=== PATIENT | female | born 1985 | race Caucasian/White ===

== ENCOUNTER → 2016-11-09 | Outpatient (CLI) | payer OTHER ==
[2016-11-09 06:00] LABS: BLOOD UREA NITROGEN 10 mg/dl (7-18); BUN/CREATININE RATIO 13.4 (10-20); CARBON DIOXIDE 25 mmol/L (21-32); CHLORIDE 107 mmol/L (98-107); CREATININE 0.74 mg/dl (0.60-1.20); GLUCOSE 93 mg/dl (70-99); POTASSIUM 3.8 mmol/L (3.5-5.1); SODIUM 139 mmol/L (136-145)
[2016-11-09 06:04] LABS: CHOLESTEROL 220 mg/dl (0-200); CHOLESTEROL/HDL RATIO 2.8; HDL CHOLESTEROL 79 mg/dl; LDL CHOLESTEROL CALCULATED 113 mg/dl; TRIGLYCERIDES 140 mg/dl (0-150); VERY LOW DENSITY LIPOPROT CALC 28 mg/dl
== END | disposition home or self-care (01) ==
LOC: C.LAB 03:38
PROVIDERS: ATTEND Nurse Practitioner Family
DX: Z13.1 Encounter for screening for diabetes mellitus (principal); Z13.220 Encounter for screening for lipoid disorders

== ENCOUNTER → 2017-11-18 | Outpatient (CLI) | payer BC | END | disposition home or self-care (01) | LOC: C.PATHSPEC 16:54 | PROVIDERS: ATTEND Plastic Surgery | DX: D22.5 Melanocytic nevi of trunk (principal) ==

== ENCOUNTER → 2017-11-19 | Outpatient (CLI) | payer BC ==
[2017-11-19 09:47] LABS: BLOOD UREA NITROGEN 12 mg/dl (7-18); CALCIUM 8.9 mg/dl (8.5-10.1); CARBON DIOXIDE 25 mmol/L (21-32); CHOLESTEROL 235 mg/dl (0-200); GLUCOSE 93 mg/dl (70-99); LDL CHOLESTEROL CALCULATED 125 mg/dl; POTASSIUM 4.1 mmol/L (3.5-5.1); SODIUM 140 mmol/L (136-145)
== END | disposition home or self-care (01) ==
LOC: C.LAB 07:24
PROVIDERS: ATTEND Nurse Practitioner Family
DX: Z00.00 Encounter for general adult medical examination without abnormal findings (principal); Z13.1 Encounter for screening for diabetes mellitus; Z13.220 Encounter for screening for lipoid disorders

== ENCOUNTER → 2017-11-27 | Outpatient (CLI) | payer BC ==
[2017-11-27 13:26] LABS: BASO % 0.6 %; BASO ABS # 0.04 K/uL (0-0.2); EOS % 0.7 %; EOS ABS # 0.05 K/uL (0-0.5); HEMATOCRIT 38.4 % (37-47); HEMOGLOBIN 13.6 g/dL (12.0-16.0); IG# 0.01 K/uL (0.00-0.02); LYMPH % 27.2 %; LYMPH ABS # 1.85 K/uL (1.2-3.4); MEAN CELL VOLUME 81.4 fL (80-100); MEAN CORPUSCULAR HEMOGLOBIN 28.8 pg (25-34); MEAN PLATELET VOLUME 9.2 fL (7.4-10.4); MONO % 9.3 %; MONO ABS # 0.63 K/uL (0.11-0.59); NEUT % 62.1 %; NEUT ABS # 4.21 K/uL (1.4-6.5); PLATELET COUNT 284 K/uL (130-400); RED CELL DISTRIBUTION WIDTH CV 12.1 % (11.5-14.5); WHITE BLOOD COUNT 6.79 K/uL (4.8-10.8)
--- NOTE | 2017-11-27 13:27 | DIAGNOSTIC IMAGING REPORT ---
HEAD WITHOUT CONTRAST (CT) CLINICAL HISTORY: 32 years-old Female with R51. Acute headache TECHNIQUE: Multiple axial CT images of the head were obtained without contrast. A dose lowering technique was utilized adhering to the principles of ALARA. CT DOSE: 638.56 mGycm COMPARISON: None. FINDINGS: No acute intracranial hemorrhage, midline shift, intracranial mass, hydrocephalus, territorial ischemia or abnormal extra-axial collection. The calvarium is intact. The paranasal sinuses, mastoid air cells, and middle ear cavities are clear. IMPRESSION: No acute intracranial abnormality. The above report was generated using voice recognition software. It may contain grammatical, syntax or spelling errors. Electronically signed by: Anthony Moya M.D. 11/27/2017 1:26 PM Dictated Date/Time: 11/27/2017 1:24 PM
[2017-11-27 13:29] LABS: MEAN CORPUSCULAR HGB CONC 35.4 g/dl (32-36)
[2017-11-27 13:56] LABS: ALBUMIN 4.2 gm/dl (3.4-5.0); ALT/SGPT 45 U/L (12-78); AST/SGOT 25 U/L (15-37); BLOOD UREA NITROGEN 12 mg/dl (7-18); CALCIUM 9.4 mg/dl (8.5-10.1); CARBON DIOXIDE 26 mmol/L (21-32); CREATININE 0.67 mg/dl (0.60-1.20); GLUCOSE 90 mg/dl (70-99); POTASSIUM 3.8 mmol/L (3.5-5.1); SODIUM 137 mmol/L (136-145)
[2017-11-27 14:02] LABS: ALKALINE PHOSPHATASE 42 U/L (45-117); TOTAL PROTEIN 7.7 gm/dl (6.4-8.2)
== END | disposition home or self-care (01) ==
LOC: C.CTS 13:05
PROVIDERS: ATTEND Nurse Practitioner Family
DX: R51 Headache (principal)

== ENCOUNTER 2019-07-19 20:09 | Inpatient (IN) ==
[2019-07-19] MEDS ORDERED: LACTATED RINGER'S 500 ML IV ONE (20:34)
[2019-07-19] MEDS: LACTATED RINGER'S 1,000 ML IV PRN ×2 (20:40→23:04)
[2019-07-19] MEDS ORDERED: LACTATED RINGER'S 1,000 ML IV PRN (21:26)
[2019-07-19] MEDS ORDERED: BUPIVACAINE 0.25% 30 ML VIAL ONE (21:26)
[2019-07-19] MEDS ORDERED: OXYTOCIN 30 UNITS/500 ML BAG IV PRN (21:26)
[2019-07-19] MEDS ORDERED: ePHEDrine sulfate 50 MG/ML AMP ONE (21:26)
[2019-07-19] MEDS ORDERED: fentaNYL citrate 100 MCG/2 ML VIAL ONE ×2 (21:27→22:26)
[2019-07-19] MEDS ORDERED: fentaNYL 2MCG/ML ROPIV 1.25MG/ML 100 ML BAG EPI ONE (21:28)
--- NOTE | 2019-07-19 21:29 | History & Physical Report ---
Date of Service July 19, 2019 Assessment & Plan (1) 40 weeks gestation of : (2) Normal labor: admit. fetus category one. epidural now. arom/pit as indicated. anticipate . History of Present Illness Chief Complaint: contractions Primary Care Provider: Mahad Sauer, CHA, RAFAELA Patient is a 33yowf with iup at 40 1/7 who presents back to labor and delivery with worsening contractions. Was here earlier for r/o rupture. Notes no further lof. no vb. Notes +fm. Was intially 2cm on admission but has changed to 3cm and will be admitted. uncomplicated. labs--B+/ab-/ri rprnr hiv-/hepb-/ gc/ct-/gbs neg/gtt x 2 nl declined cf/sma/panorama Allergies Allergy/AdvReac Type Severity Reaction Status Date / Time No Known Allergies Allergy Unknown Verified 07/19/19 20:16 Home Medications Home Medications Medication Instructions Recorded Confirmed Type PNV cmb#95-ferrous fumarate-FA 1 tab PO DAILY 07/19/19 07/19/19 History [] ferrous sulfate [Iron (ferrous 325 mg PO TID 07/19/19 07/19/19 History sulfate)] Patient History Family History (Updated 11/28/18 @ 11:38 by Miracle Pepper) Mother FH: kidney cancer Uncle Colon cancer Grandfather (Maternal) Diabetes Denies family history of Ovarian cancer Prostate cancer Myocardial infarction Breast cancer Colorectal cancer Social History (Updated 11/28/18 @ 11:39 by Miracle Pepper) Preferred Language: Indonesian Communication Ability: Effective Visual Impairment: No Limitations Hearing Ability: Normal Currency Examiner Required: No Beliefs That Will Affect Care: None marital status: Current Living Situation: Spouse Current Living Situation Comment: 2 dogs current occupational status: employed current occupation: nurse Other Information That Helps Us Care for You: No Feels Safe at Home: Yes Safety Concerns: Feels Safe At This Time Smoking Status: Former smoker Tobacco Type: cigarettes ; Age Started Using Tobacco: 17 ; Age Quit Using Tobacco: 24 ; packs per day: 0.5 ; Second Hand Exposure: No ; Hx Alcohol Use: No Hx Substance Use: No Childhood Exposure to Second-Hand Smoke: No Dental Care, Regularly: Yes Physical Activity Frequency: 5-6 Times per Week Seatbelt Use: always Sunscreen Use: Yes 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 History no std, no abnl paps Review of Systems All systems reviewed & are unremarkable except as noted in HPI & below Physical Exam Constitutional: WD/WN, vitals as above Gastrointestinal (Abdomen): soft, gravid, nt Psychiatric: A+Ox3, euthymic affect Genitourinary: cx--3/75/-2 toco--q2-3min efm--145 with mod variability accels to 170s, no decels Results & Data Vital Signs (Past 12 Hours) Vital Signs Temp Pulse Resp BP Pulse Ox 07/19/19 21:23 81 89 L 07/19/19 21:17 88 148/101 H 07/19/19 21:02 75 150/86 H 07/19/19 20:47 83 134/84 07/19/19 20:31 74 134/91 07/19/19 20:19 36.6 C 18 Code Status & VTE Plan VTE Prophylaxis Plan VTE Prophylaxis will be ordered: No Coding Level of Care Code None Diagnoses 40 weeks gestation of Z3A.40 Normal labor O80; Z37.9
[2019-07-19 21:46] LABS: Hematocrit (blood only) 35.4 % (37-47); Hemoglobin 12.8 g/dL (12.0-16.0); Mean Corpuscular Hemoglobin 29.9 pg (25-34); Mean Corpuscular Volume 82.7 fL (80-100); Platelet Count 249 K/uL (130-400); RDW Coefficient of Variation 12.8 % (11.5-14.5); RDW Standard Deviation 38.2 fL (36.4-46.3); Red Blood Count 4.28 M/uL (4.2-5.4); White Blood Count 13.24 K/uL (4.8-10.8)
[2019-07-19 21:59] LABS: Mean Corpuscular Hgb Conc 36.2 g/dL (32-36)
[2019-07-19] MEDS ORDERED: ePHEDrine sulfate 50 MG/ML AMP IV PRN (22:03)
[2019-07-19] MEDS ORDERED: fentaNYL 2MCG/ML ROPIV 1.25MG/ML 100 ML BAG EPI PRN (22:03)
[2019-07-19] MEDS ORDERED: DiphenhydrAMINE HCL 50 MG/ML VIAL IV PRN (22:03)
[2019-07-19] MEDS ORDERED: NALOXONE HCL 1 MG in SODIUM CHLORIDE 0.9% 1000ML 1,000 ML IV PRN (22:03)
[2019-07-19] MEDS ORDERED: NALBUPHINE HCL INJ 10 MG/ML AMP IV PRN (22:03)
[2019-07-19] MEDS ORDERED: PROMETHAZINE HCL 25 MG in SODIUM CHLORIDE 0.9% 50 ML IV PRN (22:03)
[2019-07-19] MEDS ORDERED: NALOXONE HCL 0.4 MG/1 ML VIAL/CARP IV PRN (22:03)
[2019-07-19] MEDS ORDERED: ONDANSETRON INJ 2 MG/ML 2 ML VIAL IV PRN (22:03)
--- NOTE | 2019-07-19 22:03 | Anesthesiology Consultation ---
Date of Service July 19, 2019 Assessment & Plan ASA ASA2 Proposed Anesthesia Anesthesia Type: Labor Epidural Risk / Benefits Reviewed With: PT / POA / Parent / Guardian, Accepts Plan and Informed Consent Obtained History Height/Weight Height: 5 ft 8 in Weight: 84.822 kg Allergies Allergy/AdvReac Type Severity Reaction Status Date / Time No Known Allergies Allergy Unknown Verified 07/19/19 20:16 Medications Home Medications Medication Instructions Recorded Confirmed Last Taken PNV cmb#95-ferrous fumarate-FA 1 tab PO DAILY 07/19/19 07/19/19 07/18/19 [] ferrous sulfate [Iron (ferrous 325 mg PO TID 07/19/19 07/19/19 07/16/19 sulfate)] Active Medications Generic Name Dose Route Start Last Admin Trade Name Freq PRN Reason Stop Dose Admin Lactated Ringer's 1,000 mls @ 125 mls/hr 07/19/19 20:34 07/19/19 21:20 Lr IV 08/18/19 20:33 125 mls/hr .Q8H PRN Infusion L&D Protocol Protocol Past Medical History Medical History Angioma (Acute) Czle-vj-otye spots (Acute) History of chicken pox Kidney stone (Inactive) Kidney stone Melasma (Acute) Migraine Multiple benign nevi (Acute) Exercise / Class Metabolic Activity II 4-5 Yardwork/Stairs/Walk up hill Past Family History Family History Mother FH: kidney cancer Uncle Colon cancer Grandfather (Maternal) Diabetes Denies family history of Ovarian cancer Prostate cancer Myocardial infarction Breast cancer Colorectal cancer Past Surgical History Surgical History S/P tonsillectomy and adenoidectomy S/P wisdom tooth extraction Past Anesthesia History No Hx of Anesthesia Complications and No Family Hx of Anesthesia Complications History of PONV No Hx of PONV and No Hx of Motion Sickness Social History Smoking Status: Former smoker tobacco type: cigarettes Hx Alcohol Use: No Hx Substance Use: No substance use type: does not use Review of Systems denies fever/cough/ colds/ chest pain/ SOB/ RACHEL Constitutional: no fever and no chills Respiratory: no cough and no dyspnea denies RACHEL Cardiovascular: no chest pain and no dyspnea on exertion Physical Exam Vital Signs Last Vital Signs Temp 36.6 C 07/19/19 20:19 Pulse 80 07/19/19 22:18 Resp 18 07/19/19 22:18 BP 151/88 H 07/19/19 22:18 Pulse Ox 97 07/19/19 22:15 ENMT Mouth: no TMJ abnormality and no dentition abnormality Thyromental Distance: > or= 3.5 Finger Breadths Mallampati Class: II Neck neck extension not limited Respiratory normal respiratory effort; no respiratory distress Auscultation: lungs clear to auscultation bilaterally Cardiovascular Rate/Rhythm: regular rate and regular rhythm Neurologic moves all extremities Psychiatric Orientation: alert and oriented x 3 Testing Laboratory Results 07/19/19 21:39
--- NOTE | 2019-07-20 00:13 | Labor Progress Brief Note ---
Date of Service July 20, 2019 Subjective comfortable after epidural Assessment & Plan (1) Normal labor: in active labor, fetus overall reassuing category 2, continue current management. anticipate . Physical Exam Constitutional: WD/WN, vitals as above Psychiatric: A+Ox3, euthymic affect Genitourinary: cx--6-7/100/-1, no membranes felt. toco--q2min efm--130s with mod variability, +scalp stim, occasional variable Results & Data Vital Signs (Past 12 Hours) Vital Signs Temp Pulse Resp BP Pulse Ox 07/20/19 00:10 90 98 07/20/19 00:07 94 H 134/83 07/20/19 00:05 91 H 96 07/20/19 00:00 99 H 98 07/19/19 23:55 87 96 07/19/19 23:52 92 H 128/81 07/19/19 23:50 90 97 07/19/19 23:45 92 H 96 07/19/19 23:40 89 98 07/19/19 23:38 83 130/79 07/19/19 23:35 94 H 98 07/19/19 23:30 89 98 07/19/19 23:25 93 H 99 07/19/19 23:23 83 133/78 07/19/19 23:20 78 98 07/19/19 23:17 84 110/63 07/19/19 23:15 84 98 07/19/19 23:10 83 97 07/19/19 23:07 77 110/66 07/19/19 23:05 83 98 07/19/19 23:00 36.6 C 84 16 98 07/19/19 22:55 86 98 07/19/19 22:50 87 98 07/19/19 22:48 88 134/87 07/19/19 22:45 92 H 98 07/19/19 22:43 88 122/74 07/19/19 22:40 86 97 07/19/19 22:38 81 147/99 H 07/19/19 22:36 89 92 07/19/19 22:35 91 H 97 07/19/19 22:32 88 143/80 H 07/19/19 22:30 78 113/64 99 07/19/19 22:28 80 117/66 07/19/19 22:26 98 H 145/92 H 03/22/20 22:25 84 96 07/19/19 22:24 84 143/94 H 07/19/19 22:23 91 H 94 07/19/19 22:22 88 137/88 07/19/19 22:20 92 H 144/96 H 95 07/19/19 22:18 80 18 151/88 H 07/19/19 22:16 71 128/84 07/19/19 22:15 87 97 07/19/19 22:10 96 H 98 07/19/19 22:05 92 H 100 07/19/19 22:04 86 92 07/19/19 22:00 91 H 100 07/19/19 21:55 85 100 07/19/19 21:50 69 100 07/19/19 21:45 73 100 07/19/19 21:40 92 H 100 07/19/19 21:35 86 100 07/19/19 21:30 86 99 07/19/19 21:23 81 89 L 07/19/19 21:17 88 148/101 H 07/19/19 21:02 75 150/86 H 07/19/19 20:47 83 134/84 07/19/19 20:31 74 134/91 07/19/19 20:19 36.6 C 18 Coding Level of Care Code None Diagnoses Normal labor O80; Z37.9
--- NOTE | 2019-07-20 02:39 | Anesthesiology Progress Note ---
Date of Service July 20, 2019 Anesthesia Post Procedure Vital Signs Vital Signs: Temp Pulse Resp BP Pulse Ox 07/20/19 02:35 102 H 96 07/20/19 02:30 125 H 95 07/20/19 02:29 143 H 91 07/20/19 02:25 107 H 96 07/20/19 02:24 98 H 91 07/20/19 02:22 100 H 135/96 07/20/19 02:20 89 97 07/20/19 02:16 100 H 89 L 07/20/19 02:15 95 H 86 L 07/20/19 02:10 101 H 93 07/20/19 02:05 106 H 89 L 07/20/19 02:00 100 H 98 07/20/19 01:55 119 H 93 07/20/19 01:52 90 130/80 07/20/19 01:50 99 H 97 07/20/19 01:45 114 H 93 07/20/19 01:44 110 H 94 07/20/19 01:40 108 H 100 07/20/19 01:35 94 H 95 07/20/19 01:30 84 97 07/20/19 01:25 82 96 07/20/19 01:22 89 94 07/20/19 01:21 87 117/76 07/20/19 01:20 82 97 07/20/19 01:15 85 96 07/20/19 01:10 87 96 07/20/19 01:06 36.8 C 86 16 123/75 07/20/19 01:05 85 95 07/20/19 01:01 84 94 07/20/19 01:00 83 96 07/20/19 00:55 88 96 07/20/19 00:53 86 151/92 H 07/20/19 00:50 88 96 07/20/19 00:47 89 94 07/20/19 00:45 86 95 07/20/19 00:41 84 94 07/20/19 00:40 89 97 07/20/19 00:37 83 126/94 07/20/19 00:35 88 99 07/20/19 00:30 85 97 07/20/19 00:25 83 97 07/20/19 00:22 85 122/72 07/20/19 00:20 85 98 07/20/19 00:15 82 95 03/23/20 00:14 36.8 C 18 23/20 00:10 90 98 0323/20 00:07 94 H 134/83 03/20 00:05 91 H 96 0320 00:00 99 H 98 0322/20 23:55 87 96 03/20 23:52 92 H 128/81 0322/20 23:50 90 97 032220 23:45 92 H 96 032220 23:40 89 98 0322/20 23:38 83 130/79 0322/20 23:35 94 H 98 0322/20 23:30 89 98 0322/20 23:25 93 H 99 03/20 23:23 83 133/78 07/18/20 23:20 78 98 03/20 23:17 84 110/63 03/20 23:15 84 98 03/20 23:10 83 97 0320 23:07 77 110/66 0320 23:05 83 98 0320 23:00 36.6 C 84 16 98 0320 22:55 86 98 032220 22:50 87 98 032220 22:48 88 134/87 032220 22:45 92 H 98 0320 22:43 88 122/74 032220 22:40 86 97 032220 22:38 81 147/99 H 032220 22:36 89 92 032220 22:35 91 H 97 032220 22:32 88 143/80 H 032220 22:30 78 113/64 99 0322/20 22:28 80 117/66 0322/20 22:26 98 H 145/92 H 0322/20 22:25 84 96 0322/20 22:24 84 143/94 H 032220 22:23 91 H 94 0322/20 22:22 88 137/88 0322/20 22:20 92 H 144/96 H 95 0322/20 22:18 80 18 151/88 H 0322/20 22:16 71 128/84 032220 22:15 87 97 0322/20 22:10 96 H 98 03/22/20 22:05 92 H 100 07/19/19 22:04 86 92 07/19/19 22:00 91 H 100 07/19/19 21:55 85 100 07/19/19 21:50 69 100 07/19/19 21:45 73 100 07/19/19 21:40 92 H 100 07/19/19 21:35 86 100 07/19/19 21:30 86 99 07/19/19 21:23 81 89 L 07/19/19 21:17 88 148/101 H 07/19/19 21:02 75 150/86 H 07/19/19 20:47 83 134/84 07/19/19 20:31 74 134/91 07/19/19 20:19 36.6 C 18 Pain Intensity Bilateral Back: Pain Intensity: 6 Transfer of Care Handoff Completed per policy Notes Mental Status: alert / awake / arousable and participated in evaluation Patient Amnestic to Procedure: Yes Nausea / Vomiting: adequately controlled Pain: adequately controlled Airway Patency, RR, SpO2: stable & adequate BP & HR: stable & adequate Hydration State: stable & adequate Anesthetic Complications: no major complications apparent and Pt Satisfied with anesthetic care
[2019-07-20] MEDS ORDERED: ACETAMINOPHEN 325 MG TAB PO PRN (02:47)
--- NOTE | 2019-07-20 02:50 | Delivery Summary ---
Vaginal Delivery Summary Date of Service July 20, 2019 Vaginal Delivery Summary Pre-operative Diagnosis: at 40 1/7 active labor Post-operative Diagnosis: same Procedure: epidural second degree laceration and repair EBL: 400cc Anesthesia: epidural Procedure: The patient pushed for about 45 min to deliver a viable female in edenilson position. The nose and mouth were bulb suctioned on the perineum and the rest of the was then delivered without difficulty. Nuchal cord x 1 reduced easily. The baby was vigorous. The nose and mouth were again bulb suctioned and the infant was placed in the maternal abdomen for drying and attention. Cord was clamped and cut at one minute of life. Cord blood and segment obtained. Placenta delivered spontaneous, intact with a three vessel cord. Cervix/sulci/rectum were intact. A second degree perineal laceration was repaired in the normal standard fashion. Hemostasis obtained with dilute pitocin and fundal massage. Apgars were 8/9. Mother and baby doing well at the end of the delivery. [facility] Vaginal Delivery Charge Vaginal Delivery Codes: 65161 global code for the antepartum, delivery, and post-
[2019-07-20] MEDS ORDERED: SUPERCREAM 0.870% 15 GM JAR EXT PRN (02:59)
[2019-07-20] MEDS ORDERED: HYDROCORTISONE ACETATE 25 MG SUPP PR PRN (02:59)
[2019-07-20] MEDS ORDERED: DIPHTHERIA/TETANUS/PERTUSSIS 0.5 ML SYR/VIAL IM ONE (02:59)
[2019-07-20] MEDS ORDERED: BENZOCAINE 20% AER SPR 82.5 GM CAN EXT PRN (02:59)
[2019-07-20] MEDS ORDERED: bisacodyL 10 MG SUPP PR PRN (02:59)
[2019-07-20] MEDS ORDERED: OXYTOCIN 30 UNITS/500 ML BAG IV PRN (02:59)
[2019-07-20] MEDS: DOCUSATE SODIUM 100 MG CAP PO SCH ×2 (08:26→20:17)
[2019-07-20] MEDS: PRENATAL VITAMIN 1 TAB PO SCH (08:26)
[2019-07-20] MEDS: IBUPROFEN 600 MG TAB PO PRN (16:29)
--- NOTE | 2019-07-21 08:17 | Obstetrical Progress Note ---
Date of Service July 21, 2019 Assessment & Plan (1) : PPD#1 doing well. Would like to maybe go home today, if work on improves. Discharge instructions reviewed. Subjective Ambulation: ambulating normally Voiding: no voiding problems Diet Tolerance:: regular diet Lochia:: Moderate Feeding Type:: breast feeding PPD#1 doing well. Review of Systems All systems reviewed & are unremarkable except as noted in HPI & below Physical Exam Constitutional WD/WN, vitals as above no acute distress Respiratory normal respiratory effort Cardiovascular Rate/Rhythm: regular rate and regular rhythm Gastrointestinal (Abdomen) Inspection/Auscultation: abdomen normal to inspection; abdomen not distended Percussion/Palpation: abdomen soft Genitourinary OB Exam Abdomen: + fundal height Fundus: + firm; not tender Results & Data Vital Signs (Past 12 Hours) Vital Signs Temp Pulse Resp BP 07/20/19 23:50 36.6 C 98 H 16 114/77
[2019-07-21] MEDS: DOCUSATE SODIUM 100 MG CAP PO SCH (08:36)
[2019-07-21] MEDS: IBUPROFEN 600 MG TAB PO PRN (08:36)
[2019-07-21] MEDS: PRENATAL VITAMIN 1 TAB PO SCH (08:36)
[2019-07-21] MEDS ORDERED: bisacodyL 5 MG TABEC PO SCH (20:00)
== END 2019-07-21 19:30 | disposition home or self-care (01) | DRG 807 ==
LOC: OPB 20:09 → 4S1 20:12 → 4S2 07-20 05:35